=== PATIENT | male | born 1950 | race African-American/Black ===

== ENCOUNTER 2020-07-12 18:10 | Emergency (ER) | payer BC, MEDICAID ==
[~2020-07-12] VITALS: Ht 180.3 cm; Wt 78.0 kg
[2020-07-12] MEDS ORDERED: TETANUS, DIPHTHERIA, PERTUSSIS VAC/PF 0.5ML (>7YR OLD) IM ONE (18:45)
[2020-07-12 19:21] VITALS: BP 133/74
== END 2020-07-12 19:23 | disposition home or self-care (01) ==
LOC: ER 18:10
DX: S20.311A Abrasion of right front wall of thorax, initial encounter (principal); W22.8XXA Striking against or struck by other objects, initial encounter; Y93.89 Activity, other specified; Y92.89 Other specified places as the place of occurrence of the external cause; Y99.8 Other external cause status; F17.290 Nicotine dependence, other tobacco product, uncomplicated; F12.10 Cannabis abuse, uncomplicated
CPT/HCPCS: 71045; 90471; 90715; 93005; 99283